=== PATIENT | female | born 2000 | race Caucasian/White ===

== ENCOUNTER 2020-06-30 18:08 | Emergency (ER) | payer OTHER ==
[~2020-06-30] VITALS: Ht 167.6 cm; Wt 68.0 kg
[2020-07-01] MEDS ORDERED: ABILIFY MYCITE5 M1 PO (00:03)
[2020-07-01] MEDS ORDERED: DESV50 PO (00:03)
== END 2020-07-01 00:09 | disposition home or self-care (01) ==
LOC: ER 18:08
DX: F31.9 Bipolar disorder, unspecified (principal); Z88.1 Allergy status to other antibiotic agents
CPT/HCPCS: 99283; Q3014